=== PATIENT | female | born 1955 | race Caucasian/White ===

== ENCOUNTER 2017-02-04 19:42 | Emergency (ER) | payer OTHER ==
[~2017-02-04] VITALS: Ht 170.2 cm; Wt 63.5 kg
[~2017-02-04 19:42] MED LIST: COZAAR 50 MG TA50 M2 PO; FLOMAX0.4 MG PO; HYDROCODONE-AP1 EAC6 PO; NIFEDIPINE ER90 M1 PO
[2017-02-04 22:52] VITALS: BP 140/98
== END 2017-02-04 22:54 | disposition home or self-care (01) ==
LOC: ER 19:42
DX: S22.42XA Multiple fractures of ribs, left side, initial encounter for closed fracture (principal); I10 Essential (primary) hypertension; F17.210 Nicotine dependence, cigarettes, uncomplicated; Z98.890 Other specified postprocedural states; W19.XXXA Unspecified fall, initial encounter; Y93.89 Activity, other specified; Y92.89 Other specified places as the place of occurrence of the external cause; Y99.8 Other external cause status